=== PATIENT | female | born 1995 | race Caucasian/White ===

== ENCOUNTER 2019-09-21 19:26 | Outpatient (CLI) | payer MEDICAID, OTHER ==
[~2019-09-21] VITALS: Ht 170 cm; Wt 117.0 kg
--- NOTE | 2019-09-21 19:35 | NUR ---
МАРИНА MARIE presented to unit via ambulatory from ED, accompanied by family, with c/o LOWER BACK PAIN, FEET SWELLING twin gest 37 1/7 weeks. МАРИНА MARIE weighed, gowned, voided, and to bed. EFHM and TOCO applied, VS taken. МАРИНА MARIE oriented to bed controls, call light, TV, heat, and A/C controls.
[2019-09-21 20:00] VITALS: BP 133/85
[2019-09-21 20:05] VITALS: BP 142/76
[2019-09-21 20:45] LABS: BILIRUBIN,URINE NEGATIVE (NEGATIVE); CLARITY,URINE CLEAR; COLOR,URINE YELLOW; GLUCOSE, URINE (UA) NEGATIVE (NEGATIVE); KETONES,URINE TRACE (NEGATIVE); LEUKOCYTE ESTERASE ,URINE NEGATIVE (NEGATIVE); NITRITE,URINE NEGATIVE (NEGATIVE); PROTEIN,URINE 1+ (NEGATIVE)
[2019-09-21 20:52] LABS: BACTERIA,URINE TRACE /HPF; WBC,URINE RARE /HPF
--- NOTE | 2019-09-21 21:00 | NUR ---
notified of pt's arrival, exam, vital signs, and u/a results. Discharge instructions received.
--- NOTE | 2019-09-21 21:10 | NUR ---
Discharge instructions verbalized with pt. pt verbalized understanding. pt discharged home. Will follow up with in office tomorrow.
--- NOTE | 2019-09-22 08:37 | Physician Query-Final Dx ---
JOO WHITE 09/22/19 0836: Clinic Account Progress/Dx Physician Query: Please give diagnosis Please include # weeks gestation Date of Service Sep 21, 2019 at 19:26 CORKY CLARK MD 09/24/19 0820: Clinic Account Progress/Dx DIAGNOSIS: Diagnosis 1. IUP at 37 weeks 2. Uterine irritability, non-labor JOO WHITE Sep 22, 2019 08:36 CORKY HIGHTOWER MD Sep 24, 2019 08:20 POS
== END 2019-09-21 21:10 | disposition home or self-care (01) ==
LOC: WSo 19:26 → LDRP 19:28 → WSo 21:10
PROVIDERS: ATTEND Family Medicine
DX: O62.9 Abnormality of forces of labor, unspecified (principal); Z3A.37 37 weeks gestation of pregnancy
CPT/HCPCS: 81000; 99212

== ENCOUNTER 2019-09-25 04:35 | Inpatient (IN) | payer MEDICAID ==
[~2019-09-25] VITALS: Ht 170.2 cm; Wt 118.5 kg
--- NOTE | 2019-09-25 12:30 | NUR ---
МАРИНА MARIE presented to unit via AMBULATORY FROM HOME, accompanied by SIGNIFICANT OTHER, with c/o LABOR. МАРИНА MARIE weighed, gowned, voided, and to bed. EFHM and TOCO applied, VS taken. МАРИНА MARIE oriented to bed controls, call light, TV, heat, and A/C controls.
[2019-09-25 12:50] VITALS: BP 131/82
[2019-09-25 13:00] VITALS: BP 131/82
--- NOTE | 2019-09-25 13:00 | NUR ---
DR DUBOSE CALLED WITH UPDATED PT REPORT BY THIS RN. ORDERS RECEIVED AND PLAN OF CARE REVIEWED. PLAN IS TO LET PT LABOR OVER NIGHT. WILL ADMIN PITOCIN IN AM IF NEEDED.
[2019-09-25] MEDS ORDERED: D5 LR IV SOLUTION 1,000 ML IV ONE (13:07)
[2019-09-25] MEDS ORDERED: AMPICILLIN FOR IV USE 2,000 MG in WATER (STERILE) FOR INJECTION 14.8 ML IV SCH (13:47)
[2019-09-25] MEDS ORDERED: MINERAL OIL CONCENTRATE 99.9% 15 ML UDC TOP PRN (14:00)
[2019-09-25 14:01] LABS: BASOPHILS % (AUTO) 0 % (0-10); EOSINOPHILS # (AUTO) 0.1 10^3/uL (0.0-0.3); EOSINOPHILS % (AUTO) 0 % (0-10); HEMATOCRIT 35 % (35-52); HEMOGLOBIN 11.4 G/DL (11.5-16.0); LYMPHOCYTES # (AUTO) 2.4 X 10^3 (1.0-4.0); LYMPHOCYTES % (AUTO) 17 % (12-44); MEAN CORPUSCULAR HEMOGLOBIN 28 PG (25-34); MEAN CORPUSCULAR HGB CONC 33 G/DL (32-36); MEAN CORPUSCULAR VOLUME 85 FL (80-99); MEAN PLATELET VOLUME 12.2 FL (7.4-10.4); MONOCYTES # (AUTO) 0.7 X 10^3 (0.0-1.0); MONOCYTES % (AUTO) 5 % (0-12); NEUTROPHILS # (AUTO) 11.2 X 10^3 (1.8-7.8); NEUTROPHILS % (AUTO) 78 % (42-75); PLATELET COUNT 213 10^3/uL (130-400); RED CELL DISTRIBUTION WIDTH 14.1 % (10.0-14.5); WHITE BLOOD COUNT 14.3 10^3/uL (4.3-11.0)
[2019-09-25 14:06] LABS: AMPHETAMINE SCREEN, URINE NEGATIVE (NEGATIVE); BARBITURATE SCREEN URINE NEGATIVE (NEGATIVE); BENZODIAZEPINES SCREEN URINE NEGATIVE (NEGATIVE); CANNABINOID SCREEN, URINE NEGATIVE (NEGATIVE); COCAINE SCREEN URINE NEGATIVE (NEGATIVE); METHADONE STAT NEGATIVE (NEGATIVE); METHAMPHETAMINE SCREEN URINE S NEGATIVE (NEGATIVE); OPIATE SCREEN URINE NEGATIVE (NEGATIVE); OXYCODONE STAT NEGATIVE (NEGATIVE); PROPOXYPHENE STAT NEGATIVE (NEGATIVE); TRICYCLIC ANTIDEPRESSANTS SCRE NEGATIVE (NEGATIVE)
[2019-09-25] MEDS: D5 LR IV SOLUTION 1,000 ML IV SCH ×2 (14:24→21:28)
--- NOTE | 2019-09-25 14:44 | NUR ---
RN SPOKE WITH DR DUBOSE. PT STATES SHE HAS NOT EATEN TODAY AND WANTING TO HAVE SOLID FOOD. RN HAS INFORMED PT OF REASON FOR NPO/CLEAR LIQUIDS BUT WOULD ASK DR FELIZ. PT SVE IS /. DR DUBOSE SAYS ICE CHIPS ONLY SINCE PT IS IN LABOR.
--- NOTE | 2019-09-25 15:00 | NUR ---
DR DAY CALLED BY THIS RN TO MAKE DR AWARE OF PT ADMISSION. DR DAY CO-MANAGING PT WITH DR DUBOSE.
[2019-09-25 16:00] VITALS: BP 116/67
--- NOTE | 2019-09-25 17:12 | NUR ---
DR DUBOSE CALLED RN FOR UPDATED PT REPORT. IF PT DOES NOT MAKE CERVICAL WOOD CARVING MACHINE OPERATOR NIGHT, START PITOCIN AT 0500.
[2019-09-25 17:20] VITALS: BP 125/73
[2019-09-25] MEDS: AMPICILLIN FOR IV USE 1,000 MG in WATER (STERILE) FOR INJECTION 7.4 ML IV SCH ×2 (18:30→22:18)
--- NOTE | 2019-09-25 19:10 | NUR ---
pt report given to elin martínez
[2019-09-25 19:35] VITALS: BP 137/89
[2019-09-25] MEDS: CATHETER FLUSH 10 ML SYR IV SCH (22:00)
[2019-09-25 22:20] VITALS: BP 108/59
[2019-09-26] VITALS (51 sets, daily range): BP systolic 110–194; BP diastolic 59–127
[2019-09-26] MEDS: AMPICILLIN FOR IV USE 1,000 MG in WATER (STERILE) FOR INJECTION 7.4 ML IV SCH ×4 (02:08→14:01)
[2019-09-26] MEDS: CATHETER FLUSH 10 ML SYR IV SCH ×3 (06:00→23:41)
[2019-09-26] MEDS: D5 LR IV SOLUTION 1,000 ML IV SCH ×2 (06:00→14:46)
[2019-09-26] MEDS ORDERED: OXYTOCIN/NORMAL SALINE 500 ML IV SCH ×2 (06:59→18:17)
[2019-09-26] MEDS ORDERED: OXYTOCIN/NORMAL SALINE 500 ML IV ONE (07:00)
[2019-09-26] MEDS ORDERED: LACTATED RINGERS 1,000 ML IV ONE ×2 (07:37→08:56)
--- NOTE | 2019-09-26 07:54 | Progress Note ---
Standard Progress Note Progress Notes/Assess & Plan Date Seen by a Provider: Sep 26, 2019 Time Seen by a Provider: 07:30 Progress/Assessment & Plan Subjective: Ms. Junior was admitted for onset of labor with Twins. I discussed with her and her the mode of delivery and what would happen should she or her unborn infants encounter problems--immediate and emergent C- Section, that procedure was discussed. All questions were answered. Objective: Cervix: 3 cm/70%/-3 Vertex/Intact Assessment: Intrauterine at 37 2/7 weeks 2. Twin Gestation (Vertex/Vertex) Plan: Pitocin Augmentation of Labor. Artificial Rupture of Membranes. Epidural for antepartum pain management. Normal spontaneous vaginal delivery expected. Discussed Emergent with untoward event. Final Diagnosis Intrauterine at 37 2/7 weeks 2. Twin Gestation KRIS DAY DO Sep 26, 2019 07:54 POS
[2019-09-26] MEDS ORDERED: fentaNYL INJECTION 100 MCG/2 ML AMP ONE (08:01)
[2019-09-26] MEDS ORDERED: BUPIVACAINE 0.25% 30 ML (SENSORCAINE) VIAL ONE (08:01)
[2019-09-26] MEDS ORDERED: SUFENTA 0.6MCG/ML BUPIVA 0.125 100 ML ONE (08:01)
--- NOTE | 2019-09-26 08:09 | NUR ---
Leah Osullivan here for epidural placement. Procedure explained, consent reviewed and signed by anesthesia. Questions answered to patient's satisfaction. Time out taken to verify correct patient/procedure. Patient up to side of bed, assisted into sitting position. Betadine prep done x3 and sterile drape applied. Local done, see anesthesia record. Test dose given, see anesthesia record for drug and dosage. Epidural catheter secured in place. Epidural placement complete. Assisted back into bed, monitors adjusted. Epidural dosed, see anesthesia record. Epidural of Sufenta/Bupivicaine @ 12 cc/hr stated per pump. Patient tolerated procedure well.
--- NOTE | 2019-09-26 08:25 | History & Physical-OB ---
OB - Chief Complaint & HPI Date/Time Date of Admission: Date of Admission: Sep 25, 2019 at 12:45 Date seen by a Provider: Sep 26, 2019 Time Seen by a Provider: 08:22 Chief Complaint/History OB-Reason for Admission/Chief: Induction of Labor Hx : 1 Hx Para: 0 Expected Date of Delivery: Oct 11, 2019 Gestational Age in Weeks: 37 Gestational Age in Days: 2 Indication for induction: maternal discomfort, other (twin gestation) Allergies and Home Medications Allergies Coded Allergies: No Known Drug Allergies (Unverified , 09/21/19) Home Medications No Active Prescriptions or Reported Meds Patient Home Medication List Home Medication List Reviewed: Yes OB - History Hx of Present Care: Yes Ultrasounds: Other (late care at 34 weeks) Obstetrical Complications: Other (twin gestation) Delivery History Adverse Rxn to Tranfusion: No Patient Past Medical History alcohol use. Social History/Family History Recent Infectious Disease Expo: No Alcohol Use: Denies Use Recreational Drug Use: No OB - Admission Exam Physical Exam Vitals: Vital Signs 09/25/19 09/26/19 19:35 05:02 Temp 36.5 Pulse 70 Resp 18 B/P (MAP) 121/80 (94) Pulse Ox 98 O2 Delivery Room Air HEENT: NCAT Heart: Rhythm Normal Lungs: Clear Abdomen: Gravid Extremities: Normal Cervical Dilatation: 3cm Effacement: 75% Station: -2 Membranes: Ruptured Amniotic Fluid: Clear Heart Rate: 140's Accelerations: Accelerations Present Decelerations: No Decelerations Short Term Variability: Present Correction Variability: Average (6-25) Contractions on Admission: < 5 Minutes Apart Intensity: Moderate Labs Laboratory Tests Test 09/25/19 13:30 Range/Units White Blood Count 14.3 H 4.3-11.0 10^3/uL Red Blood Count 4.09 L 4.35-5.85 10^6/uL Hemoglobin 11.4 L 11.5-16.0 G/DL Hematocrit 35 35-52 % Mean Corpuscular Volume 85 80-99 FL Mean Corpuscular Hemoglobin 28 25-34 PG Mean Corpuscular Hemoglobin Concent 33 32-36 G/DL Red Cell Distribution Width 14.1 10.0-14.5 % Platelet Count 213 130-400 10^3/uL Mean Platelet Volume 12.2 H 7.4-10.4 FL Neutrophils (%) (Auto) 78 H 42-75 % Lymphocytes (%) (Auto) 17 12-44 % Monocytes (%) (Auto) 5 0-12 % Eosinophils (%) (Auto) 0 0-10 % Basophils (%) (Auto) 0 0-10 % Neutrophils # (Auto) 11.2 H 1.8-7.8 X 10^3 Lymphocytes # (Auto) 2.4 1.0-4.0 X 10^3 Monocytes # (Auto) 0.7 0.0-1.0 X 10^3 Eosinophils # (Auto) 0.1 0.0-0.3 10^3/uL Basophils # (Auto) 0.0 0.0-0.1 10^3/uL Urine Opiates Screen NEGATIVE NEGATIVE Urine Oxycodone Screen NEGATIVE NEGATIVE Urine Methadone Screen NEGATIVE NEGATIVE Urine Propoxyphene Screen NEGATIVE NEGATIVE Urine Barbiturates Screen NEGATIVE NEGATIVE Ur Tricyclic Antidepressants Screen NEGATIVE NEGATIVE Urine Phencyclidine Screen NEGATIVE NEGATIVE Urine Amphetamines Screen NEGATIVE NEGATIVE Urine Methamphetamines Screen NEGATIVE NEGATIVE Urine Benzodiazepines Screen NEGATIVE NEGATIVE Urine Cocaine Screen NEGATIVE NEGATIVE Urine Cannabinoids Screen NEGATIVE NEGATIVE OB - Assessment/Plan/Diagnosis Assessment Assessment: induction of labor Admission Dx Induction of labor for twin gestation at 37 2/7 wga. GBS positive. Admission Status: Inpatient Order (span 2 midnights) Reason for Inpatient Admission: Induction of labor. Plan Induction Method: per Pitocin Protocol CAROLINA DUBOSE MD Sep 26, 2019 08:25 POS
[2019-09-26] MEDS: EPIDURAL (SUFENTA 0.6MCG/ML BUPIVA 0.125%) 100 ML BAG EPI SCH ×2 (08:45→15:28)
[2019-09-26] MEDS ORDERED: NALOXONE 0.4 MG/ML 1 ML (NARCAN) VIAL IV PRN (09:00)
[2019-09-26] MEDS ORDERED: CATHETER FLUSH 10 ML SYR IV PRN (09:00)
[2019-09-26] MEDS ORDERED: LIDOCAINE/EPI 2% 1:200,00 (XYLOCAINE) 10 ML VIAL ONE (15:23)
[2019-09-26] MEDS ORDERED: LIDOCAINE 1% INJ 20 ML 20 ML VIAL ONE (16:58)
--- NOTE | 2019-09-26 17:40 | Consultation ---
History of Present Illness History of Present Illness Patient Consulted On(wilfredo/time) 09/26/19 17:34 Date Seen by Provider: Sep 26, 2019 Time Seen by Provider: 17:30 Reason for Visit: Intrauterine at 37 2/7 weeks with Twin Gestation History of Present Illness Twin Gestation that presented with the onset of labor Allergies and Home Medications Allergies Coded Allergies: No Known Drug Allergies (Unverified , 09/21/19) Home Medications No Active Prescriptions or Reported Meds Patient Home Medication List Home Medication List Reviewed: Yes Past Prytzhu-Dmhxvf-Mdqpcg Hx Patient Social History Alcohol Use: Denies Use Recreational Drug Use: No Drug of Choice: meth Smoking Status: Never a Smoker Recent Foreign Travel: No Contact w/Someone Who Travel: No Recent Infectious Disease Expo: No Recent Hopitalizations: No Seasonal Allergies Seasonal Allergies: No Past Medical History Surgeries: No Respiratory: No Cardiac: No Neurological: No Expected Date of Delivery: Oct 11, 2019 Hx : 1 Hx Para: 0 Genitourinary: No Gastrointestinal: No Musculoskeletal: No Endocrine: No HEENT: No Cancer: No Psychosocial: No Integumentary: No Blood Disorders: No Adverse Reaction/Blood Tranf: No Family Medical History [place] G8 SISTER Review of Systems-General Constitutional: see HPI Physical Exam-General Problems Physical Exam Vital Signs Vital Signs - First Documented 09/25/19 09/25/19 12:50 13:00 Temp 36.6 Pulse 103 Resp 18 B/P (MAP) 131/82 (98) Pulse Ox 99 O2 Delivery Room Air Capillary Refill : Less Than 3 Seconds Assessment/Plan Assessment/Plan Admission Diagnosis/Plan Assessment: Intrauterine at 37 2/7 weeks 2. Twin Gestation Plan: Ms. Junior'jadiel labor was augmented with Pitocin. I artificially ruptured her membranes. She progressed to complete. I attended the delivery with Dr. Kramer doing the actually delivery. During the laboring process I did give the patient a Pudendal Block secondary to her Epidural not providing adequate pain management. Refer to Dr. Kramer's Delivery Note for details. Reason for Inpatient Admission: Intrauterine at 37 2/7 weeks 2. Twin Gestation Clinical Quality Measures DVT/VTE Risk/Contraindication: Risk Factor Score Per Nursin RFS Level Per Nursing on Admit: 1=Low/No VTE PPX KRIS DAY DO Sep 26, 2019 17:40 POS
[2019-09-26] MEDS ORDERED: MISOPROSTOL 200 MCG (CYTOTEC) TABLET ONE (18:10)
--- NOTE | 2019-09-26 18:17 | OB Labor & Delivery Record ---
Vag Delivery Note Vag Delivery Note Date of Delivery: 09/26/19 Preoperative Diagnosis: Severo Junior is a (23 /Para 1 / 0, Gestational Age (wks)37with [2 days] Postoperative Diagnosis: Same Surgeon: Carolina Dubose Machine Tank Operator: [Dr. Reece] Anesthesia: [epidural and pudendal block] Delivery Type: [ of twins] Findings: [] Baby A Viable [male] infants, apgars [8/9], weight [6 pounds 2 ounces] No nuchal cord. Baby B Viable male infant, apgars 5/8/8, weight 6 pounds 6 ounces Loose nuchal, not reduced times 1. Lacerations: right labial laceration. Intact placentas with 3 vessel cord. Delivered intact. 3 vessel cords. Estimated Blood Loss: [250] ml Complications: None Condition: Stable Description of Procedure: The patient is a 23 year old female who presented [in labor]. She was admitted and informed consent was obtained. Her labor course was remarkable for [twin gestation] She progressed to complete dilatation and began to push. She was then set up for delivery. The Baby A's head was delivered atraumatically in the [OA] position. The shoulders and remainder of the 's body were then delivered without difficulty. Upon delivery, the head was held below the level of the perineum and the mouth and nares were bulb suctioned. The cord was doubly clamped and cut and the was handed off to the pediatric staff. Then rupture of second amniotic bag with amnihook. Patient was having pain with maneuver's during delivery of second and Dr. Reece performed a pudendal nerve block that significantly reduced patient's pain. The Baby B's head was delivered atraumatically in the [OA] position after manual rotation from OP position . The shoulders and remainder of the infant's body were then delivered without difficulty. Upon delivery, the head was held below the level of the perineum and the mouth and nares were bulb suctioned. The cord was doubly clamped and cut and the was handed off to the pediatric staff. Intact fused placentas with 2 3-vessel cords delivered via [place] and there was found to be minimal bleeding.~ Vigorous fundal massage was performed and the fu ndus was found to be firm. IV oxytocin was given. Examination of the vagina and perineum revealed a [right and left labial] laceration repaired in the usual fashion with 3-0 vicryl suture. Following the repair, sponge, instrument and needle counts were correct. Mom and baby A were both in stable condition in the labor suite. Vitals - Labs Vital Signs - I&O Vital Signs Date Time Temp Pulse Resp B/P (MAP) Pulse Ox O2 Delivery O2 Flow Rate FiO2 09/26/19 15:00 87 18 136/71 (92) 100 Room Air 09/26/19 14:45 88 18 142/88 (106) 100 Room Air 09/26/19 14:30 83 18 140/87 (104) 100 Room Air 09/26/19 14:15 84 18 134/87 (103) 100 Room Air 09/26/19 14:00 86 18 137/88 (104) 100 Room Air 09/26/19 13:45 36.9 83 18 143/76 (98) 100 Room Air 09/26/19 13:30 114 18 136/84 (101) 98 Room Air 09/26/19 13:15 105 18 125/83 (97) 98 Room Air 09/26/19 13:00 79 18 115/65 (82) 98 Room Air 09/26/19 12:45 70 18 110/61 (77) 100 Room Air 09/26/19 12:15 84 18 129/71 (90) 97 Room Air 09/26/19 12:00 82 18 125/72 (89) 98 Room Air 09/26/19 11:45 36.9 82 18 129/77 (94) 100 Room Air 09/26/19 11:30 79 18 114/63 (80) 100 Room Air 09/26/19 11:15 78 18 131/77 (95) 100 Room Air 09/26/19 11:00 80 18 134/82 (99) 100 Room Air 09/26/19 10:45 92 18 136/86 (103) 100 Room Air 09/26/19 10:30 36.7 81 18 135/71 (92) 99 Room Air 09/26/19 10:15 95 18 131/83 (99) 98 Room Air 09/26/19 10:00 80 18 124/75 (91) 97 Room Air 09/26/19 09:45 75 18 127/70 (89) 98 Room Air 09/26/19 09:30 81 18 126/72 (90) 99 Room Air 09/26/19 09:15 90 18 130/75 (93) 100 Room Air 09/26/19 09:00 98 18 141/82 (101) 100 Room Air 09/26/19 08:45 37.0 99 18 120/93 (102) 100 Room Air 09/26/19 08:42 104 18 120/93 (102) 100 Room Air 09/26/19 08:37 91 18 136/91 (106) 100 Room Air 09/26/19 08:35 98 18 148/90 (109) 100 Room Air 09/26/19 08:30 103 18 169/86 (113) 100 Room Air 09/26/19 08:16 82 18 151/88 (109) 100 Room Air 09/26/19 08:15 80 18 100 Room Air 09/26/19 08:09 83 18 162/91 (114) 100 Room Air 09/26/19 08:00 36.7 80 18 138/83 (101) Room Air 09/26/19 07:45 Room Air 09/26/19 07:30 77 18 142/88 (106) Room Air 09/26/19 05:02 36.5 70 18 121/80 (94) Room Air 09/26/19 01:10 36.4 83 18 129/77 (94) Room Air 09/25/19 22:20 36.8 87 18 108/59 (75) Room Air 09/25/19 19:35 36.9 96 18 137/89 (105) 98 Room Air I & O 09/26/19 07:00 Intake Total 2044.4 ml Balance 2044.4 ml CAROLINA DUBOSE MD Sep 26, 2019 18:17 POS
[2019-09-26] MEDS ORDERED: BENZOCAINE/MENTHOL (DERMOPLAST) 56 ML CAN TP PRN (18:30)
[2019-09-26] MEDS ORDERED: WITCH HAZEL(TUCKS) 40 EA JAR TOP PRN (18:30)
[2019-09-26] MEDS ORDERED: TETANUS,DIPTH,PERTUSS P/F (BOOSTRIX) 0.5 ML VIAL IM ONE (18:30)
[2019-09-26] MEDS ORDERED: MEASLES,MUMPS,RUBELLA 1 EA INJ SQ ONE (18:30)
[2019-09-26] MEDS ORDERED: MISOPROSTOL 200 MCG (CYTOTEC) TABLET PR NR (19:00)
[2019-09-26] MEDS: IBUPROFEN 600 MG (MOTRIN) TAB PO SCH (19:10)
--- NOTE | 2019-09-26 19:45 | NUR ---
Report to Alfa Monroe RN.
[2019-09-26] MEDS: DOCUSATE SODIUM 100 MG (COLACE) CAP PO SCH (20:39)
[2019-09-26] MEDS: ACETAMINOPHEN 500 MG TAB (TYLENOL) PO SCH (23:41)
[2019-09-27] VITALS (7 sets, daily range): BP systolic 121–135; BP diastolic 63–83
[2019-09-27] MEDS: IBUPROFEN 600 MG (MOTRIN) TAB PO SCH ×4 (01:56→19:45)
[2019-09-27 06:12] LABS: BASOPHILS % (AUTO) 0 % (0-10); EOSINOPHILS % (AUTO) 0 % (0-10); HEMATOCRIT 31 % (35-52); HEMOGLOBIN 9.9 G/DL (11.5-16.0); LYMPHOCYTES # (AUTO) 2.4 X 10^3 (1.0-4.0); LYMPHOCYTES % (AUTO) 20 % (12-44); MEAN CORPUSCULAR HEMOGLOBIN 28 PG (25-34); MEAN CORPUSCULAR HGB CONC 32 G/DL (32-36); MEAN CORPUSCULAR VOLUME 86 FL (80-99); MEAN PLATELET VOLUME 11.9 FL (7.4-10.4); MONOCYTES # (AUTO) 0.8 X 10^3 (0.0-1.0); MONOCYTES % (AUTO) 7 % (0-12); NEUTROPHILS # (AUTO) 8.8 X 10^3 (1.8-7.8); NEUTROPHILS % (AUTO) 73 % (42-75); PLATELET COUNT 203 10^3/uL (130-400); RED CELL DISTRIBUTION WIDTH 14.3 % (10.0-14.5)
--- NOTE | 2019-09-27 06:41 | NUR ---
Pt sitting up, IV removed and pt given second breast shield after first one was lost.
[2019-09-27] MEDS: CATHETER FLUSH 10 ML SYR IV SCH ×3 (06:46→22:39)
[2019-09-27] MEDS: ACETAMINOPHEN 500 MG TAB (TYLENOL) PO SCH ×3 (06:46→18:47)
--- NOTE | 2019-09-27 08:39 | NUR ---
AM shift assessment completed and vital signs obtained, see interventions. Plan of care reviewed with patient. Patient verbalizes understanding and questions answered. Scheduled Motrin, Tylenol, and Colace PO given.
[2019-09-27] MEDS: DOCUSATE SODIUM 100 MG (COLACE) CAP PO SCH ×3 (08:40→19:45)
--- NOTE | 2019-09-27 10:20 | NUR ---
TDAP administered, see EMAR. VIS sheet provided to patient.
--- NOTE | 2019-09-27 12:16 | Progress Note ---
Subjective Subjective/Events-last exam Doing well. Bottle/. Bleeding slowing. Pain controlled. Tired. Objective Exam Last Set of Vital Signs Vital Signs Date Time Temp Pulse Resp B/P (MAP) Pulse Ox O2 Delivery O2 Flow Rate FiO2 09/27/19 08:39 36.7 89 18 127/75 (92) 98 Room Air Capillary Refill : Less Than 3 Seconds I&O Intake and Output 09/27/19 00:00 Intake Total 3404.6 ml Balance 3404.6 ml Intake IV Total 3404.6 ml General: Alert, Oriented X3 HEENT: Atraumatic Lungs: Clear to Auscultation Abdomen: Normal Bowel Sounds Extremities: Other (edema bilaterally with pitting 2+) Results/Procedures Lab Laboratory Tests 09/27/19 05:41: White Blood Count 12.0H, Red Blood Count 3.60L, Hemoglobin 9.9L, Hematocrit 31L, Mean Corpuscular Volume 86, Mean Corpuscular Hemoglobin 28, Mean Corpuscular Hemoglobin Concent 32, Red Cell Distribution Width 14.3, Platelet Count 203, Mean Platelet Volume 11.9H, Neutrophils (%) (Auto) 73, Lymphocytes (%) (Auto) 20, Monocytes (%) (Auto) 7, Eosinophils (%) (Auto) 0, Basophils (%) (Auto) 0, Neutrophils # (Auto) 8.8H, Lymphocytes # (Auto) 2.4, Monocytes # (Auto) 0.8, Eosinophils # (Auto) 0.0, Basophils # (Auto) 0.0 Assessment/Plan Assessment/Plan Admission Dx day 1 from twin vaginal delivery. Doing well. Admission Status: Inpatient Order (span 2 midnights) Clinical Quality Measures DVT/VTE Risk/Contraindication: Risk Factor Score Per Nursin RFS Level Per Nursing on Admit: 1=Low/No VTE PPX CAROLINA DUBOSE MD Sep 27, 2019 12:16 POS
--- NOTE | 2019-09-27 12:54 | Anesthesia-Regional Post-Op ---
Regional Patient Condition Mental Status: Alert, Oriented x3 Circulation: Same as Pre-Op Headache: Absent Sensation: Full Recovery Motor Block: Absent Post Op Complications Complications None Follow Up Care/Instructions Patient Instructions None needed. Anesthesia/Patient Condition Patient is doing well, no complaints, stable vital signs, no apparent adverse anesthesia problems. No complications reported per nursing. ROGELIO DOMINGUEZ CRNA Sep 27, 2019 12:54 POS
--- NOTE | 2019-09-27 13:45 | NUR ---
TOOK OVER CARE OF THIS PATIENT FROM FADI IRENE
[2019-09-28] MEDS: IBUPROFEN 600 MG (MOTRIN) TAB PO SCH ×3 (00:06→14:24)
[2019-09-28] MEDS: ACETAMINOPHEN 500 MG TAB (TYLENOL) PO SCH ×3 (00:06→14:24)
[2019-09-28 03:57] VITALS: BP 136/93
[2019-09-28] MEDS: CATHETER FLUSH 10 ML SYR IV SCH ×2 (06:44→14:42)
[2019-09-28 09:09] VITALS: BP 151/87
[2019-09-28] MEDS: DOCUSATE SODIUM 100 MG (COLACE) CAP PO SCH (09:09)
--- NOTE | 2019-09-28 09:09 | NUR ---
AM shift assessment completed and vital signs obtained, see interventions. Scheduled Colace PO given. Plan of care reviewed with patient. Patient verbalizes understanding and questions answered.
[2019-09-28] MEDS ORDERED: IBUP-844 PO (10:13)
--- NOTE | 2019-09-28 10:28 | Discharge Instructions ---
Discharge Inst-[facility] Reconcile Patient Problems Problems Reviewed?: Yes Depart Medications New, Converted or Re-Newed RX: Transmitted to Pharmacy Follow Up/Instructions Goal/Follow Up: Follow-up with Dr. Dubose in 6 weeks Activity Activity: Activity as Tolerated Driving Instructions: You May Drive NO SMOKING: NO SMOKING Nothing Inside Vagina: No Douching, No [place], No Tampons Diet Discharge Diet: No Restrictions Symptoms to Report to : Fever Over 101 Degrees F, Vaginal Bleeding Increase For Any Problems or Questions: Contact Your Physician CAROLINA DUBOSE MD Sep 28, 2019 10:28 POS
--- NOTE | 2019-09-28 10:31 | Discharge Summary ---
Diagnosis/Chief Complaint Date of Admission Sep 25, 2019 at 12:45 Date of Discharge Sep 28, 2019 Admission Diagnosis Admission Diagnosis Normal labor of twin gestation at 37 1/7 wga. Discharge Diagnosis Normal labor and vaginal delivery of twins at gestational age 37 2/7 wga. Discharge Summary-OBS Procedures None. Discharge Physical Examination Allergies: Coded Allergies: No Known Drug Allergies (Unverified , 09/21/19) Vitals & I&Os Vital Sign - Last 12Hours Date Time Temp Pulse Resp B/P (MAP) Pulse Ox O2 Delivery O2 Flow Rate FiO2 09/28/19 03:57 36.8 64 20 136/93 (107) 100 Room Air General Appearance: Alert, Oriented X3 HEENT: Atraumatic Respiratory: Clear to Auscultation Cardiovascular: Regular Rate Abdominal: Normal Bowel Sounds, Other (fundus firm and below umbilicus) Extremities: Other (edema 1+ bilaterally) Skin: No Rashes Neuro: Normal Gait Psych/Mental Status: Mental Status NL Hospital Course Was the Problem List Reviewed?: Yes Discharge Instructions to patient/family Please see electronic discharge instructions given to patient. Discharge Medications Reviewed and agree with Discharge Medication list on patient's Discharge Instruction sheet Clinical Quality Measures DVT/VTE Risk/Contraindication: Risk Factor Score Per Nursin RFS Level Per Nursing on Admit: 1=Low/No VTE PPX CAROLINA DUBOSE MD Sep 28, 2019 10:31 POS
[2019-09-28 14:24] VITALS: BP 146/87
--- NOTE | 2019-09-28 14:34 | NUR ---
Discharge instructions and medications reviewed with patient both written and verbally. Patient verbalizes understanding and questions answered. Information on being a "Boarder Mom" provided.
--- NOTE | 2019-09-28 14:45 | NUR ---
Patient discharged at this time to "Boarder" status.
--- NOTE | 2019-09-29 09:58 | NUR ---
CM/SS visiting patient due to a vp digital marketing social media and crm consult. Plan: The patient's plan is to return home with her significant other and babies (Brooks and Jennifer). The patient states that she has all needs met for baby supplies such as [id number] with bassinet, diapers, and clothes. The patient has WIC and will utilize for formula needs. Summary: The patient states that she has great social supports in place. Her mother lives in [place] and her sister lives in [place]. The patient and her significant other live in an apartment in [place]. The patient didn't start care until September 02 due to her not knowing of the . Patient states that her current significant other is the biological father of babies. 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 CM/SS asked patient if there has been any drug use since rehab and she stated no. No other needs at this time, will continue to follow.
== END 2019-09-28 14:45 | disposition home or self-care (01) | DRG 807 ==
LOC: LDRP 12:45
PROVIDERS: ADMIT Family Medicine; ATTEND Family Medicine
PROC: 10E0XZZ Delivery of Products of Conception, External Approach (ICD-10-PCS; principal; 2019-09-26)
PROC: 0HQ9XZZ Repair Perineum Skin, External Approach (ICD-10-PCS; 2019-09-26)
PROC: 3E033VJ Introduction of Other Hormone into Peripheral Vein, Percutaneous Approach (ICD-10-PCS; 2019-09-26)
PROC: 10S0XZZ Reposition Products of Conception, External Approach (ICD-10-PCS; 2019-09-26)
DX: O30.043 Twin pregnancy, dichorionic/diamniotic, third trimester (principal); O09.33 Supervision of pregnancy with insufficient antenatal care, third trimester; O99.824 Streptococcus B carrier state complicating childbirth; O70.0 First degree perineal laceration during delivery; O64.0XX2 Obstructed labor due to incomplete rotation of fetal head, fetus 2; O69.81X2 Labor and delivery complicated by cord around neck, without compression, fetus 2; Z37.2 Twins, both liveborn; Z3A.37 37 weeks gestation of pregnancy; Z23 Encounter for immunization
CPT/HCPCS: 36415; 80306; 85025; 86850; 86900; 86901; 90715; 99212

== ENCOUNTER → 2020-07-15 | Outpatient (CLI) | payer MEDICAID ==
[~2020-07-15] MED LIST: IBUP-844 PO
--- NOTE | 2020-07-15 14:38 | Diagnostic Imaging Report ---
INDICATION: Chronic low back pain. Time of exam 1:50 PM Frontal and lateral views of the lumbar spine were obtained. Curvature and alignment of the lumbar spine is normal. Vertebral body heights are maintained. No acute compression fracture is identified. Disc spaces appear to be well-maintained. IMPRESSION: No acute abnormality is detected. Dictated by: Dictated on workstation # [id number]
== END ==
LOC: RAD FS 13:37
PROVIDERS: ATTEND Family Medicine
DX: M54.5 Low back pain (principal)
CPT/HCPCS: 72100

== ENCOUNTER 2021-07-18 18:11 | Emergency (ER) | payer MEDICAID ==
[~2021-07-18] VITALS: Ht 175.3 cm; Wt 88.5 kg
[2021-07-18 18:36] LABS: BILIRUBIN,URINE NEGATIVE (NEGATIVE); CLARITY,URINE CLEAR; COLOR,URINE YELLOW; GLUCOSE, URINE (UA) NEGATIVE (NEGATIVE); KETONES,URINE NEGATIVE (NEGATIVE); LEUKOCYTE ESTERASE ,URINE 1+ (NEGATIVE); NITRITE,URINE NEGATIVE (NEGATIVE); PH,URINE 5.5 (5-9); PROTEIN,URINE NEGATIVE (NEGATIVE)
[2021-07-18 18:57] LABS: AMORPHOUS SEDIMENT,UR RARE AMOR URATES /LPF; BACTERIA,URINE FEW /HPF; WBC,URINE 25-50 /HPF
[2021-07-18] MEDS ORDERED: KETOROLAC 30 MG/ML VIAL IVP ONE (19:45)
--- NOTE | 2021-07-18 19:45 | ED Abdominal Pain ---
General Chief Complaint: Abdominal/GI Problems Stated Complaint: BACK / L SIDE PAIN Nursing Triage Note: PT AMBULATE TO TRIAGE WITH C/O ABD PAIN X2 WEEKS. PT BELIEVES MAY BE CAUSED BY HER IUD. PT REPORTS SHE [facility]. Source of Information: Patient Exam Limitations: No Limitations History of Present Illness Date Seen by Provider: Jul 18, 2021 Time Seen by Provider: 19:45 Allergies and Home Medications Allergies Coded Allergies: No Known Drug Allergies (Unverified , 09/21/19) Patient Home Medication List Ibuprofen (Ibu) 600 Mg Tablet, 600 MG PO Q6H Prescribed by: CAROLINA DUBOSE on 09/28/19 1013 Past Tozmdbe-Yfgznn-Xgsbvm Hx Patient Social History Tobacco Use?: Yes Tobacco type used: Cigarettes Smoking Status: Current Everyday Smoker Use of E-Cig and/or Vaping dev: No Substance use?: Yes Substance type: Marijuana Alcohol Use?: No Pt feels they are or have been: No Immunizations Up To Date First/Initial COVID19 Vaccinat: 01/07/2021 Second COVID19 Vaccination Brad: 02/11/2021 COVID19 Vaccine Mds Rn: MODERNA Seasonal Allergies Seasonal Allergies: No Past Medical History Surgeries: No Respiratory: No Cardiac: No Neurological: No Genitourinary: No Gastrointestinal: No Musculoskeletal: No Endocrine: No HEENT: No Cancer: No Psychosocial: No Integumentary: No Blood Disorders: No Adverse Reaction/Blood Tranf: No Family Medical History Clubfoot G8 SISTER Physical Exam Vital Signs Vital Signs - First Documented 07/18/21 18:52 Temp 37.0 Pulse 96 Resp 18 B/P (MAP) 119/73 (88) O2 Delivery Room Air Capillary Refill : Less Than 3 Seconds Height/Weight/BMI Height: '" Weight: lbs. oz. kg; 28.00 BMI Method: Progress/Results/Core Measures Results/Orders Lab Results Laboratory Tests Test 07/18/21 18:20 07/18/21 20:50 07/18/21 22:10 Range/Units Urine Color YELLOW Urine Clarity CLEAR Urine pH 5.5 5-9 Urine Specific [place] 1.025 H 1.016-1.022 Urine Protein NEGATIVE NEGATIVE Urine Glucose (UA) NEGATIVE NEGATIVE Urine Ketones NEGATIVE NEGATIVE Urine Nitrite NEGATIVE NEGATIVE Urine Bilirubin NEGATIVE NEGATIVE Urine Urobilinogen 0.2 < = 1.0 MG/DL Urine Leukocyte Esterase 1+ H NEGATIVE Urine RBC (Auto) NEGATIVE NEGATIVE Urine RBC NONE /HPF Urine WBC 25-50 H /HPF Urine Crystals PRESENT H /LPF Urine Amorphous Sediment RARE ALVIN URATES H /LPF Urine Bacteria FEW H /HPF Urine Casts NONE /LPF Urine Mucus NEGATIVE /LPF Urine Culture Indicated YES White Blood Count 8.0 4.3-11.0 10^3/uL Red Blood Count 4.59 3.80-5.11 10^6/uL Hemoglobin 13.6 11.5-16.0 g/dL Hematocrit 42 35-52 % Mean Corpuscular Volume 92 80-99 fL Mean Corpuscular Hemoglobin 30 25-34 pg Mean Corpuscular Hemoglobin Concent 32 32-36 g/dL Red Cell Distribution Width 12.6 10.0-14.5 % Platelet Count 200 130-400 10^3/uL Mean Platelet Volume 11.4 9.0-12.2 fL Immature Granulocyte % (Auto) 0 % Neutrophils (%) (Auto) 49 42-75 % Lymphocytes (%) (Auto) 45 H 12-44 % Monocytes (%) (Auto) 6 0-12 % Eosinophils (%) (Auto) 1 0-10 % Basophils (%) (Auto) 0 0-10 % Neutrophils # (Auto) 3.9 1.8-7.8 10^3/uL Lymphocytes # (Auto) 3.6 1.0-4.0 10^3/uL Monocytes # (Auto) 0.5 0.0-1.0 10^3/uL Eosinophils # (Auto) 0.1 0.0-0.3 10^3/uL Basophils # (Auto) 0.0 0.0-0.1 10^3/uL Immature Granulocyte # (Auto) 0.0 0.0-0.1 10^3/uL Sodium Level 137 135-145 MMOL/L Potassium Level 4.1 3.6-5.0 MMOL/L Chloride Level 102 98-107 MMOL/L Carbon Dioxide Level 27 21-32 MMOL/L Anion Gap 8 5-14 MMOL/L Blood Urea Nitrogen 16 7-18 MG/DL Creatinine 0.79 0.60-1.30 MG/DL Estimat Glomerular Filtration Rate 89 BUN/Creatinine Ratio 20 Glucose Level 77 70-105 MG/DL Calcium Level 10.0 8.5-10.1 MG/DL Corrected Calcium 9.8 8.5-10.1 MG/DL Total Bilirubin 0.2 0.1-1.0 MG/DL Aspartate Amino Transf (AST/SGOT) 19 5-34 U/L Alanine Aminotransferase (ALT/SGPT) 31 0-55 U/L Alkaline Phosphatase 76 40-136 U/L Total Protein 7.9 6.4-8.2 GM/DL Albumin 4.3 3.2-4.5 GM/DL My Orders Orders - FABBY MERRITT [employer] Ua Culture If Indicated (07/18/21 18:13) Urine Bedside (07/18/21 18:13) Urine Culture (07/18/21 18:20) Ed Iv/Invasive Line Start (07/18/21 19:33) Ketorolac Injection (Toradol Injection) (07/18/21 19:45) Wet Prep (07/18/21 19:33) Neisseria Gonorrhea Swab (07/18/21 19:33) Genital Culture (07/18/21 19:33) Jamie Prep (07/18/21 19:33) Chlamydia Trachomatis Swab (07/18/21 19:33) Abdomen/Kub 1view (07/18/21 19:33) Cbc With Automated Diff (07/18/21 20:28) Comprehensive Metabolic Panel (07/18/21 20:28) Ct Abdomen/Pelvis W (07/18/21 20:28) Iohexol Injection (Omnipaque 350 Mg/Ml 1 (07/18/21 20:45) Received Contrast (Hold Metformin- Contr (07/18/21 20:45) Ns (Ivpb) (Sodium Chloride 0.9% Ivpb Bag (07/18/21 20:45) Medications Given in ED Current Medications Medications Dose Ordered Sig/Hetal Route Start Time Stop Time Status Last Admin Dose Admin Iohexol 100 ml ONCE ONCE IV 07/18/21 20:45 07/18/21 20:46 DC 07/18/21 21:01 100 ML Ketorolac Tromethamine 30 mg ONCE ONCE IVP 07/18/21 19:45 07/18/21 19:46 DC 07/18/21 20:47 30 MG Sodium Chloride 100 ml ONCE ONCE IV 07/18/21 20:45 07/18/21 20:46 DC 07/18/21 21:01 80 ML Vital Signs/I&O 07/18/21 18:52 Temp 37.0 Pulse 96 Resp 18 B/P (MAP) 119/73 (88) O2 Delivery Room Air Blood Pressure Mean: 88 Departure Impression Primary Impression: Abdominal pain Disposition: 01 HOME, SELF-CARE Condition: Improved Departure-Patient Inst. Decision time for Depature: 22:11 Referrals: CAROLINA DUBOSE MD (PCP/Family) Primary Care Physician Patient Instructions: Abdominal Pain, Adult ED Add. Discharge Instructions: Plan: 1. Follow up with Dr. Dubose for persistent symptoms. 2. Return for any new, concerning, or worsening symptoms. All discharge instructions reviewed with patient and/or family. Voiced understanding. FABBY MERRITT [employer] Jul 18, 2021 19:45
--- NOTE | 2021-07-18 20:23 | Diagnostic Imaging Report ---
REASON FOR EXAM: Flank pain. Abdominal cramping. COMPARISON: None TECHNIQUE: 2 views of the abdomen FINDINGS: The bowel gas pattern is nondistended. No large collection of free intraperitoneal air is seen. Scattered small amounts of gas and fecal material are present in the colon. No abnormal extraosseous calcifications are present. The osseous structures are age-appropriate. IUD is in place. IMPRESSION: No evidence of bowel obstruction or large collection of free intraperitoneal air. Dictated by: Dictated on workstation # [id number]
[2021-07-18] MEDS ORDERED: IOHEXOL 350 MG/ML 100 ML (OMNIPAQUE 350) VIAL IV ONE (20:45)
[2021-07-18] MEDS ORDERED: NS 100 ML (IVPB) BAG IV ONE (20:45)
[2021-07-18] MEDS ORDERED: HOLD METFORMIN - RECEIVED CONTRAST 20 ML VIAL IV SCH (20:45)
--- NOTE | 2021-07-18 21:11 | Diagnostic Imaging Report ---
EXAMINATION: CT abdomen and pelvis with intravenous contrast. TECHNIQUE: Multiple contiguous axial images were obtained through the abdomen and pelvis after the uneventful administration of intravenous contrast. All CT scans use one or more of the following dose optimizing techniques: automated exposure control, MA and/or KvP adjustment based on patient size and exam type or iterative reconstruction. HISTORY: Left lower quadrant abdominal pain. Cramping. COMPARISON: None available. FINDINGS: The heart is unremarkable. The included lung bases are clear. The liver, spleen, pancreas, adrenal glands, and kidneys have a normal appearance. There is no pathologically enlarged mesenteric or retroperitoneal adenopathy. The bowel loops are nondilated. The appendix is visualized in the right lower quadrant and has a normal appearance. There is no free fluid or free air. No acute osseous abnormalities. Ureters and bladder are grossly normal. IUD is visualized in appropriate configuration. There is no free air, loculated collection, or adenopathy in the pelvis. IMPRESSION: 1. No acute abnormalities are seen in the abdomen and pelvis. No bowel obstruction, free fluid, or free air. Normal appendix. Dictated by: Dictated on workstation # [id number]
[2021-07-18 21:18] LABS: ALBUMIN 4.3 GM/DL (3.2-4.5); POTASSIUM 4.1 MMOL/L (3.6-5.0)
[2021-07-18 21:19] LABS: BASOPHILS % (AUTO) 0 % (0-10); EOSINOPHILS # (AUTO) 0.1 10^3/uL (0.0-0.3); EOSINOPHILS % (AUTO) 1 % (0-10); HEMATOCRIT 42 % (35-52); HEMOGLOBIN 13.6 g/dL (11.5-16.0); LYMPHOCYTES # (AUTO) 3.6 10^3/uL (1.0-4.0); LYMPHOCYTES % (AUTO) 45 % (12-44); MEAN CORPUSCULAR HEMOGLOBIN 30 pg (25-34); MEAN CORPUSCULAR HGB CONC 32 g/dL (32-36); MEAN CORPUSCULAR VOLUME 92 fL (80-99); MEAN PLATELET VOLUME 11.4 fL (9.0-12.2); MONOCYTES # (AUTO) 0.5 10^3/uL (0.0-1.0); MONOCYTES % (AUTO) 6 % (0-12); NEUTROPHILS # (AUTO) 3.9 10^3/uL (1.8-7.8); NEUTROPHILS % (AUTO) 49 % (42-75); PLATELET COUNT 200 10^3/uL (130-400)
[2021-07-18 21:21] LABS: TOTAL PROTEIN 7.9 GM/DL (6.4-8.2)
[2021-07-18 21:23] LABS: BILIRUBIN,TOTAL 0.2 MG/DL (0.1-1.0)
[2021-07-18 21:24] LABS: CREATININE SERUM 0.79 MG/DL (0.60-1.30)
[2021-07-18 22:46] VITALS: BP 127/86
== END 2021-07-18 22:46 | disposition home or self-care (01) ==
LOC: EDUNIT# 18:11 → ER 18:13
DX: R10.9 Unspecified abdominal pain (principal); F17.210 Nicotine dependence, cigarettes, uncomplicated
CPT/HCPCS: 36415; 74018; 74177; 80053; 81000; 84703; 85025; 87070; 87077; 87088; 87186; 87205; 87210; 87491; 87591